=== PATIENT | female | born 1985 | race Caucasian/White ===

== ENCOUNTER 2021-05-09 16:03 | Emergency (ER) | payer OTHER, SELFPAY ==
[2021-05-09 16:32] VITALS: BP 158/89; BP 162/106; PULSE 92; PULSE 96; RESP 18; TEMP 37.4; O2SAT 100; O2SAT 99; BMI 25.7
--- NOTE | 2021-05-09 16:38 | ECG_ITS ---
Test Reason : HEADACHE Blood Pressure : / mmHG Vent. Rate : 092 BPM Atrial Rate : 092 BPM P-R Int : 132 ms QRS Dur : 074 ms QT Int : 338 ms P-R-T Axes : 068 059 060 degrees QTc Int : 417 ms Normal sinus rhythm Normal ECG No previous ECGs available Referred By: Stefanie Cardona Electronically Signed By:MAURY CORREA MD
--- NOTE | 2021-05-09 16:59 | ED.DIZZY ---
HPI - Dizziness General Chief Complaint: Dizziness Stated Complaint: dizzy ? infection Time Seen by Provider: 05/09/21 16:37 Source: patient and EMS Mode of arrival: EMS Limitations: no limitations History of Present Illness HPI Narrative: 35 y/o female with history of HTN, cervical spinal stenosis, and recently drained abscess on her left buttock yesterday at [facility] presents to the ER via EMS with dizziness, low grade fever, and chills. She reports being discharged with Keflex and Minocin for her abscess and packing was inserted. She states it was the size of a baseball. The pain in the area is improved after drainage. No history of similar abscesses in the past. She is not diabetic and denies any IV drug use. She has been compliant with the antibiotics. She admits to eating an edible marijuana cookie this morning. She later went to work where she started to feel unwell. She c/o intermittent dizziness, worse with movement and position changes. EMS was called because she almost passed out. Her temp was 100 after she took Tylenol earlier in the afternoon. MD elicited complaint: lightheadedness and near syncope Onset (ago): day(s) Timing: gradual onset Severity: moderate Description: lightheadedness Context: change in medication and recent illness History of similar symptoms: No Exacerbating factors: movement/ambulation and change in body position Relieving factors: remaining still and rehydration (given IVF by EMS and feels better) Associated symptoms: nausea and chills Stroke scale total: 0 Related Data Allergies Allergy/AdvReac Type Severity Reaction Status Date / Time NSAIDS (Non-Steroidal AdvReac Palpitation Verified 05/09/21 16:31 Anti-Inflamma s Review of Systems Review of Systems: Constitutional:+ Fever, + Chills ENT/Mouth: No sore throat, No Rhinorrhea, No Swallowing Difficulty Eyes: No Eye Pain, No Swelling, No Redness Cardiovascular: No Chest Pain, No SOB, No Orthopnea, No Edema Respiratory: No Cough, No Sputum, No Wheezing, No dyspnea Gastrointestinal: + Nausea, No Vomiting, No Diarrhea, No abdominal Pain Genitourinary: No Dysuria, No Urinary Frequency, No Hematuria Musculoskeletal: No joint pain, No Myalgias Skin: No Skin Lesions, No rash Neuro: No Weakness, No Numbness, + Dizziness, No Headache Psych: No Anxiety/Panic, No Depression Heme/Lymph: No Bruising, No Lymphadenopathy PMFSH Past Medical History Medical History (Updated 05/09/21 @ 19:15 by JUAN Dozier) Anemia Surgical History (Updated 05/09/21 @ 16:36 by Shabana Ulrich) H/O tubal ligation Social History Social History Advance Directives: No Advance Directives Information Provided: Yes Patient : No Physical Exam Vital Signs: Vital Signs: Last Vital Signs Temp 99.4 F 05/09/21 16:32 Pulse 92 05/09/21 16:32 Resp 18 05/09/21 16:32 BP 158/89 H 05/09/21 16:32 Pulse Ox 99 05/09/21 16:32 Body Mass Index 25.7 Appearance: Alert. Oriented X3. No acute distress. Eyes: Pupils equal, round and reactive to light. ENT: Pharynx normal. Neck: Normal inspection. Neck supple. CVS: Normal heart rate and rhythm. Pulses normal. Respiratory: No respiratory distress. Breath sounds normal. Abdomen: Soft and nontender. +BS x4 Skin: Skin warm and dry. Normal skin color. Normal skin turgor. No rashes. Left buttock with healing abscess, packing in place with moderate surrounding erythema and tenderness, minimal drainage. no palpable fluctuance, mild induration centrally around packing Neuro: Oriented X 3. No motor deficit. No sensory deficit. Course Course Course Narrative: 35 y/o male with left buttock abscess s/p I&D yesterday presenting with reports of feeling pre-syncopal. She also admits to using edible marijuana today. She has a low grade fever on arrival, appears non-toxic. Suspect her symptoms are related to combination of infection, mild dehydration and marijuana. She does not appear to be septic at this time. Will try to get Sandi's culture result. Will check basic labs including lactic acid and blood cultures, doubt bacteremia. Reevaluation(s) Reevaluation #1: No leukocytosis. Lactic acid was normal. She was given dose of IV rocephin for cellulitis/abscess. She is feeling better. Orthostatics are negative. No signs of severe sepsis. She is stable for discharge home with continuation of PO abx and f/u for packing removal tomorrow. Patient agrees with plan. [facility] [place] [facility] [place]estation: I reviewed the patient's medical records. Lab Data Attestation: I reviewed the patient's lab results. Result diagrams: 05/09/21 17:13 05/09/21 17:13 Labs: Lab Results 05/09/21 05/09/21 05/09/21 Range/Units 17:13 17:13 17:13 WBC 8.2 (4.8-10.8) X10*3/uL RBC 4.18 L (4.20-5.50) X10*6/uL Hgb 10.6 L (12.0-16.0) g/dl Hct 33.6 L (37-47) % MCV 80.4 (80-98) fL MCH 25.4 L (27.0-33.0) pg MCHC 31.5 (31.0-35.0) g/dl RDW 16.1 H (11.0-16.0) % Plt Count 307 (160-400) X10*3/uL MPV 8.8 L (9.4-12.3) fL Immature Gran % (Auto) 0.2 (0.0-0.4) % Neut % (Auto) 77.4 H (45-73) % Lymph % (Auto) 14.4 L (20-40) % [place] % (Auto) 6.6 (2-11) % Eos % (Auto) 0.7 (0-4) % Baso % (Auto) 0.7 (0-2) % Lymph # (Auto) 1.2 (1.2-4.9) X10*3/uL [place] # (Auto) 0.5 (0.1-1.2) X10*3/uL Eos # (Auto) 0.1 (0.0-0.4) X10*3/uL Baso # (Auto) 0.1 (0.0-0.2) X10*3/uL Abs Immat Gran (auto) 0.02 (0.00-0.03) X10*3/uL Absolute Neuts (auto) 6.3 (2.0-8.3) X10*3/uL Absolute Nucleated RBC 0.000 (0.0-0.012) X10*3/uL Nucleated RBC % (auto) 0.0 (0.0-0.2) /100WBC Sodium 140 (135-145) mmol/L Potassium 3.9 (3.3-5.1) mmol/L Chloride 107 (96-108) mmol/L Carbon Dioxide 26 (22-29) mmol/L Anion Gap 11 L (12-20) BUN 8 L (9-16) mg/dL Creatinine 0.80 (0.5-1.4) mg/dL Estim Creat Clear Calc 88.6 Estimated GFR > 60 Random Glucose 93 (60-115) mg/dL Lactic Acid 0.9 (0.5-2.0) mmol/L Calcium 8.7 (8.4-10.2) mg/dL Magnesium 1.8 (1.6-2.6) mg/dL Total Bilirubin 0.3 (0.0-1.0) mg/dL Direct Bilirubin 0.2 (0.0-0.5) mg/dL AST 25 (5-31) U/L ALT 30 (0-31) U/L Alkaline Phosphatase 85 (39-117) U/L Total Protein 6.7 (6.5-8.0) g/dL Albumin 4.0 (3.5-5.0) g/dL Urine Color Urine Appearance Urine pH (5.0-8.0) Ur Specific [place] (1.005-1.025) Urine Protein (NEG-TRACE) MG/DL Urine Glucose (UA) (NEG) MG/DL Urine Ketones (NEG) MG/DL Urine Blood (NEG) Urine Nitrite (NEG) Ur Leukocyte Esterase (NEG) 05/09/21 Range/Units 17:13 WBC (4.8-10.8) X10*3/uL RBC (4.20-5.50) X10*6/uL Hgb (12.0-16.0) g/dl Hct (37-47) % MCV (80-98) fL MCH (27.0-33.0) pg MCHC (31.0-35.0) g/dl RDW (11.0-16.0) % Plt Count (160-400) X10*3/uL MPV (9.4-12.3) fL Immature Gran % (Auto) (0.0-0.4) % Neut % (Auto) (45-73) % Lymph % (Auto) (20-40) % [place] % (Auto) (2-11) % Eos % (Auto) (0-4) % Baso % (Auto) (0-2) % Lymph # (Auto) (1.2-4.9) X10*3/uL [place] # (Auto) (0.1-1.2) X10*3/uL Eos # (Auto) (0.0-0.4) X10*3/uL Baso # (Auto) (0.0-0.2) X10*3/uL Abs Immat Gran (auto) (0.00-0.03) X10*3/uL Absolute Neuts (auto) (2.0-8.3) X10*3/uL Absolute Nucleated RBC (0.0-0.012) X10*3/uL Nucleated RBC % (auto) (0.0-0.2) /100WBC Sodium (135-145) mmol/L Potassium (3.3-5.1) mmol/L Chloride (96-108) mmol/L Carbon Dioxide (22-29) mmol/L Anion Gap (12-20) BUN (9-16) mg/dL Creatinine (0.5-1.4) mg/dL Estim Creat Clear Calc Estimated GFR Random Glucose (60-115) mg/dL Lactic Acid (0.5-2.0) mmol/L Calcium (8.4-10.2) mg/dL Magnesium (1.6-2.6) mg/dL Total Bilirubin (0.0-1.0) mg/dL Direct Bilirubin (0.0-0.5) mg/dL AST (5-31) U/L ALT (0-31) U/L Alkaline Phosphatase (39-117) U/L Total Protein (6.5-8.0) g/dL Albumin (3.5-5.0) g/dL Urine Color YELLOW Urine Appearance CLEAR Urine pH 7.5 (5.0-8.0) Ur Specific [place] 1.015 (1.005-1.025) Urine Protein NEG (NEG-TRACE) MG/DL Urine Glucose (UA) NEG (NEG) MG/DL Urine Ketones NEG (NEG) MG/DL Urine Blood NEG (NEG) Urine Nitrite NEG (NEG) Ur Leukocyte Esterase NEG (NEG) ECG Data Attestation: I personally reviewed and interpreted this ECG as follows: ECG interpretation date: 05/09/21 ECG interpretation time: 18:15 Interpretation: normal sinus rhythm, HR 92 bpm, normal ME interval, normal QTc, no ST elevations or depressions. Discharge Plan Discharge Clinical Impression: Cellulitis and abscess of buttock Patient Disposition: Home, Self-Care Instructions: Cellulitis (ED), Abscess Incision and Drainage (DC) Additional Instructions: Your blood work today was unremarkable. Continue taking your antibiotics as prescribed. Skip the cephalexin tonight, continue the minocycline tonight. Recommend increasing your fluid intake. Take Motrin and/or Tylenol as needed for pain and fevers. Follow up with your doctor, [facility] or come back here tomorrow for packing removal and wound assessment. If you develop new or worsening symptoms call 911 or come back to the ER for further evaluation.
[2021-05-09 17:31] LABS: MANUAL DIFF FLAG NO
[2021-05-09 17:36] LABS: Basophils Absolute Auto 0.1 X10*3/uL (0.0-0.2); Basophils Percent Auto 0.7 % (0-2); Eosinophils Absolute Auto 0.1 X10*3/uL (0.0-0.4); Eosinophils Percent Auto 0.7 % (0-4); Hematocrit 33.6 % (37-47); Hemoglobin 10.6 g/dl (12.0-16.0); Imm Gran Abs Auto 0.02 X10*3/uL (0.00-0.03); Imm Gran Pct Auto 0.2 % (0.0-0.4); Lymphocytes Absolute Auto 1.2 X10*3/uL (1.2-4.9); Lymphocytes Percent Auto 14.4 % (20-40); Mean Corpuscular HGB Conc 31.5 g/dl (31.0-35.0); Mean Corpuscular Hemoglobin 25.4 pg (27.0-33.0); Mean Corpuscular Volume 80.4 fL (80-98); Mean Platelet Volume 8.8 fL (9.4-12.3); Monocytes Absolute Auto 0.5 X10*3/uL (0.1-1.2); Monocytes Percent Auto 6.6 % (2-11); Neutrophils Absolute Auto 6.3 X10*3/uL (2.0-8.3); Neutrophils Percent Auto 77.4 % (45-73); Platelet Count 307 X10*3/uL (160-400); Red Blood Count 4.18 X10*6/uL (4.20-5.50); Red Cell Distribution Width 16.1 % (11.0-16.0); White Blood Count 8.2 X10*3/uL (4.8-10.8)
[2021-05-09 17:38] LABS: Glucose Urine UA NEG (NEG); Leukocyte Esterase Urine NEG (NEG); Nitrite Urine NEG (NEG); PH 7.5 (5.0-8.0); Specific Gravity - Urine 1.015 (1.005-1.025); Urine Blood NEG (NEG); Urine Ketones NEG (NEG); Urine Protein NEG (NEG-TRACE)
[2021-05-09 17:44] LABS: Appearance Urine CLEAR; Color Urine YELLOW
[2021-05-09 17:53] LABS: Lactic Acid 0.9 mmol/L (0.5-2.0)
[2021-05-09 18:00] LABS: Alanine Aminotransferase 30 U/L (0-31); Alkaline Phosphatase 85 U/L (39-117); Anion Gap 11 (12-20); Aspartate Amino Transferase 25 U/L (5-31); Bilirubin Direct 0.2 mg/dL (0.0-0.5); Bilirubin Total 0.3 mg/dL (0.0-1.0); Blood Urea Nitrogen 8 mg/dL (9-16); Calcium 8.7 mg/dL (8.4-10.2); Carbon Dioxide 26 mmol/L (22-29); Chloride 107 mmol/L (96-108); Creatinine Clr Calc Pharmacy 88.6; Estimated Glomerular Filt Rate > 60; Glucose Random 93 mg/dL (60-115); Magnesium 1.8 mg/dL (1.6-2.6); Potassium 3.9 mmol/L (3.3-5.1); Sodium 140 mmol/L (135-145); Total Protein 6.7 g/dL (6.5-8.0)
[2021-05-09] MEDS: Ibuprofen 600 MG TABLET PO (18:00)
[2021-05-09] MEDS: cefTRIAXone sodium 1 GM in 0.9 % Sodium Chloride 50 ML IV (18:27)
[2021-05-09 19:30] VITALS: BP 153/90; PULSE 90
[2021-05-09 19:32] VITALS: BP 156/98; PULSE 88
[2021-05-09 19:34] VITALS: BP 163/99; PULSE 91
== END 2021-05-09 19:43 | disposition home or self-care (01) ==
PROVIDERS: Physician Assistant; Emergency Provider Emergency Medicine
DX: L03.317 Cellulitis of buttock (principal); L02.31 Cutaneous abscess of buttock; I10 Essential (primary) hypertension; Z98.890 Other specified postprocedural states
CPT/HCPCS: 36415; 80048; 80076; 81003; 83605; 83735; 85025; 87040; 93005; 96365; 96368; 99284; J0696